=== PATIENT | female | born 1995 | race Two or more races ===

== ENCOUNTER 2020-10-04 08:45 | Emergency (ER) | payer OTHER ==
[~2020-10-04] VITALS: Ht 152.4 cm; Wt 68.0 kg
[2020-10-04] MEDS ORDERED: SYNTHROID50 MCG (08:53)
[2020-10-04] MEDS ORDERED: DECADRON4 MG (08:54)
== END 2020-10-04 12:14 | disposition home or self-care (01) ==
LOC: ER 08:45
DX: R06.02 Shortness of breath (principal); Z11.52 Encounter for screening for COVID-19